=== PATIENT | female | born 1980 | race Caucasian/White ===

== ENCOUNTER 2021-07-04 17:05 | Emergency (ER) | payer BC, OTHER ==
[2021-07-04] MEDS ORDERED: HYDROmorphone 1 MG/ML Syringe IM ONE (19:39)
[2021-07-04 20:36] VITALS: BP 138/91; PULSE 64
== END 2021-07-04 20:40 | disposition home or self-care (01) ==
LOC: JP.ED 17:05
DX: G56.92 Unspecified mononeuropathy of left upper limb (principal); Z79.899 Other long term (current) drug therapy; Z88.2 Allergy status to sulfonamides; Z88.6 Allergy status to analgesic agent
CPT/HCPCS: 36415; 71046; 71046-26; 80053; 84484; 85025; 96372; 99282; 99283-25; J1170